=== PATIENT | female | born 1965 | race Caucasian/White ===

== ENCOUNTER → 2017-01-20 | Outpatient (CLI) | payer OTHER | LOC: CIMAGING 08:53 | DX: Z12.31 Encounter for screening mammogram for malignant neoplasm of breast (principal) | CPT/HCPCS: G0202 ==

== ENCOUNTER → 2018-01-27 | Outpatient (CLI) | payer OTHER | LOC: CIMAGING 14:30 | DX: Z12.31 Encounter for screening mammogram for malignant neoplasm of breast (principal) ==